=== PATIENT | male | born 1985 | race Caucasian/White ===

== ENCOUNTER 2017-01-21 15:58 | Observation (INO) | payer BC ==
[~2017-01-21] VITALS: Ht 182.9 cm; Wt 210.4 kg
[~2017-01-21 15:58] MED LIST: ALPR2TAB3 PO; DILA4TAB2 PO; NADO20TA PO
[2017-01-21 16:03] VITALS: BP 156/100; PULSE 84; RESP 20; TEMP 98.3; O2SAT 97
[2017-01-21] MEDS ORDERED: SODIUM CHLORIDE 0.9% FLUSH 10 ML FLUSH IVF PRN (16:15)
[2017-01-21] MEDS ORDERED: NITROGLYCERIN 0.4 MG SL 25 TABS/BTL SL ONE (16:15)
[2017-01-21] MEDS ORDERED: ASPIRIN 81 MG CHEW TAB PO ONE (16:15)
--- NOTE | 2017-01-21 16:15 | PD ---
HPI Chief Complaint: Chest Pain Time Seen by Provider: 16:08 Travel History International Travel<30 days: No Contact w/Intl Traveler<30days: No Traveled to known affect area: No History of Present Illness HPI Patient is a 31-year-old morbidly obese male smoker presents emergency Department chest tightness and left side of his chest going down his left shoulder. Patient states it started approximately 30 minutes prior to arrival. He states "I think I was having an heart attack". Patient states his father had a heart attack in his 50s. States no history of high blood pressure high cholesterol that he knows about. Denies any cocaine use denies any other controlled substance use. Endorses some shortness of breath and some mild nausea. PFSH Past Medical History Hx Anticoagulant Therapy: No Arthritis: Yes (Rt ankle, rt hand) Asthma: No Autoimmune Disease: No Anxiety: Yes Depression: No Heart Rhythm Problems: No Cancer: No Cardiovascular Problems: Yes High Cholesterol: No Chemotherapy: No Chest Pain: No Congestive Heart Failure: No COPD: No Cerebrovascular Accident: No Diabetes: No Diminished Hearing: No Endocrine: No Gastrointestinal Disorders: Yes Genitourinary: No Headaches: Yes Hiatal Hernia: Yes Heparin Induced Thrombocytopen: No Hypertension: No Immune Disorder: No Implanted Vascular Access Dvce: Yes Kidney Stones: No Musculoskeletal: Yes (LUM DICKEY) Neurologic: Yes (ARNOLD CHIARI MALFORMATION TYPE 2) Psychiatric: No Reproductive: No Respiratory: No Immunizations Current: No Migraines: No Pneumonia: Yes Radiation Therapy: No Renal Failure: No Seizures: No Sickle Cell Disease: No Sleep Apnea: Yes Ulcer: No Past Surgical History Abdominal Surgery: Yes (GASTRIC SLEEVE) AICD: No Appendectomy: Yes Arteriovenous Shunt: Yes (HX SHUNT, TAKEN OUT THOUGH) Cardiac Surgery: No Cholecystectomy: Yes Ear Surgery: No Endocrine Surgery: No Eye Surgery: No Genitourinary Surgery: Yes (GASTRIC SLEEVE 04/2012) Hysterectomy: No Insulin Pump: No Joint Replacement: No Neurologic Surgery: Yes (ARNOLD-CHIARI MALFORMATION ) Oral Surgery: Yes (TONSILLECTOMY/ADNOIDECTOMY) Pacemaker: No Thoracic Surgery: No Tonsillectomy: Yes Other Surgery: Yes (HERNIA, LAMINECTOMY CRANIOTOMY) Social History Alcohol Use: Yes (SOC) Tobacco Use: No Substance Use: No Allergies-Medications (Allergen,Severity, Reaction): Coded Allergies: Codeine (Verified Allergy, Intermediate, Nausea/Vomiting, 01/21/17) Morphine (Verified Allergy, Unknown, ABD PAIN AND NAUSEA, 01/21/17) Reported Meds & Prescriptions Reported Meds & Active Scripts Active Dilaudid (Hydromorphone HCl) 4 Mg Tab 4 Mg PO Q6H PRN Reported Metoprolol Tartrate 25 Mg Tab 25 Mg PO BID Alprazolam 2 Mg Tab 2 Mg PO BID PRN Nadolol 20 Mg Tab 20 Mg PO BID Review of Systems Except as stated in HPI: all other systems reviewed are Neg Physical Exam Narrative GENERAL: Well-developed well-nourished, morbidly obese, appears quite uncomfortable. SKIN: Focused skin assessment warm/dry. HEAD: Atraumatic. Normocephalic. EYES: Pupils equal and round. No scleral icterus. No injection or drainage. ENT: No nasal bleeding or discharge. Mucous membranes pink and moist. NECK: Trachea midline. No JVD. CARDIOVASCULAR: Regular rate and rhythm. No murmur appreciated. 2+ bilateral equal pulses in all 4 extremities. No edema. RESPIRATORY: No accessory muscle use. Clear to auscultation. Breath sounds equal bilaterally. GASTROINTESTINAL: Abdomen soft, non-tender, nondistended. Hepatic and splenic margins not palpable. MUSCULOSKELETAL: No obvious deformities. No clubbing. No cyanosis. No edema. NEUROLOGICAL: Awake and alert. No obvious cranial nerve deficits. Motor grossly within normal limits. Normal speech. PSYCHIATRIC: Appropriate mood and affect; insight and judgment normal. Data Data Last Documented VS Vital Signs Date Time Temp Pulse Resp B/P Pulse Ox O2 Delivery O2 Flow Rate FiO2 01/21/17 16:27 99 Room Air 01/21/17 16:03 98.3 84 20 156/100 Orders Electrocardiogram (01/21/17 16:13) Ckmb (Isoenzyme) Profile (01/21/17 16:13) Complete Blood Count With Diff (01/21/17 16:13) Comprehensive Metabolic Panel (01/21/17 16:13) Magnesium (Mg) (01/21/17 16:13) Prothrombin Time / Inr (Pt) (01/21/17 16:13) Act Partial Throm Time (Ptt) (01/21/17 16:13) Troponin I (01/21/17 16:13) Chest, Single Ap (01/21/17 16:13) Ecg Monitoring (01/21/17 16:13) Iv Access Insert/Monitor (01/21/17 16:13) Oximetry (01/21/17 16:13) Oxygen Administration (01/21/17 16:13) Aspirin Chew (Aspirin Chew) (01/21/17 16:15) Sodium Chloride 0.9% Flush (Ns Flush) (01/21/17 16:15) Nitroglycerin Sl (Nitrostat Sl) (01/21/17 16:15) Activity Bed Rest With Brp (01/21/17 18:13) Vital Signs (Adult) Q4H (01/21/17 18:13) Cardiac Rhythm .As Directed (01/21/17 18:13) Notify Dr: Other .PRN (01/21/17 18:13) Notify Parameters (01/21/17 18:13) Resp Oxygen Nasal Cannula (01/21/17 ) Ckmb (Isoenzyme) Profile (01/21/17 18:13) Ckmb (Isoenzyme) Profile (01/21/17 21:13) Troponin I (01/21/17 18:13) Troponin I (01/21/17 21:13) Electrocardiogram (01/21/17 18:13) Electrocardiogram (01/21/17 21:13) ^ Obtain (01/21/17 18:13) Sodium Chloride 0.9% Flush (Ns Flush) (01/21/17 18:15) Sodium Chloride 0.9% Flush (Ns Flush) (01/21/17 21:00) Fractionation Supervisor / Telemetry JENNIFER.Q8H (01/21/17 18:13) Drug Screen, Random Urine (01/21/17 18:13) Diet 1999 Ada Cons Carb (01/21/17 Dinner) Npo After Midnight W/ Po Meds (01/21/17 Dinner) Admit Order (Ed Use Only) (01/21/17 ) Labs Laboratory Tests Test 01/21/17 16:20 White Blood Count 12.8 TH/MM3 Red Blood Count 5.22 MIL/MM3 Hemoglobin 16.4 GM/DL Hematocrit 47.1 % Mean Corpuscular Volume 90.3 FL Mean Corpuscular Hemoglobin 31.4 PG Mean Corpuscular Hemoglobin 34.8 % Concent Red Cell Distribution Width 14.1 % Platelet Count 216 TH/MM3 Mean Platelet Volume 9.5 FL Neutrophils (%) (Auto) 66.1 % Lymphocytes (%) (Auto) 24.5 % Monocytes (%) (Auto) 7.5 % Eosinophils (%) (Auto) 1.3 % Basophils (%) (Auto) 0.6 % Neutrophils # (Auto) 8.5 TH/MM3 Lymphocytes # (Auto) 3.1 TH/MM3 Monocytes # (Auto) 1.0 TH/MM3 Eosinophils # (Auto) 0.2 TH/MM3 Basophils # (Auto) 0.1 TH/MM3 CBC Comment DIFF FINAL Differential Comment Prothrombin Time 11.2 SEC Prothromb Time International 1.0 RATIO Ratio Activated Partial 29.4 SEC Thromboplast Time Sodium Level 139 MEQ/L Potassium Level 4.0 MEQ/L Chloride Level 106 MEQ/L Carbon Dioxide Level 22.7 MEQ/L Anion Gap 10 MEQ/L Blood Urea Nitrogen 19 MG/DL Creatinine 0.86 MG/DL Estimat Glomerular Filtration 104 ML/MIN Rate Random Glucose 106 MG/DL Calcium Level 9.1 MG/DL Magnesium Level 1.6 MG/DL Total Bilirubin 0.4 MG/DL Aspartate Amino Transf 27 U/L (AST/SGOT) Alanine Aminotransferase 64 U/L (ALT/SGPT) Alkaline Phosphatase 64 U/L Total Creatine Kinase 69 U/L Troponin I LESS THAN 0.02 NG/ML Total Protein 7.3 GM/DL Albumin 3.6 GM/DL [facility] Medical Decision Making Medical Screen Exam Complete: Yes Emergency Medical Condition: Yes Medical Record Reviewed: Yes Interpretation(s) EKG shows normal sinus rhythm normal axis normal R-wave progression, intervals within normal limits. No concerning ST segment changes. This normal EKG. Differential Diagnosis ACS, AMI, pneumonia, GERD, costochondritis. Narrative Course Patient roomed in emergency department, he has fairly typical description of his chest pain, certainly does have risk factors including morbid obese, smoking , weak family history. Initial workup including troponin EKG negative. Patient feeling better with just rest. Discussed with the patient could consider following up with his knitter hand Dr. Barrera whom he follows with for palpitations versus observation. Patient prefers observation at this time. Given his typical description and his morbid obesity thank this is reasonable. Patient will be obs to chest pain center holding orders were placed. Diagnosis Primary Impression: Chest pain Admitting Information Admitting Physician Requests: Observation Condition: Stable Haris Tapai MD Jan 21, 2017 16:14
[2017-01-21 16:27] VITALS: O2SAT 99
[2017-01-21 16:32] LABS: AUTOMATED NEUTROPHIL # 8.5 TH/MM3 (1.8-7.7); BASOPHIL # 0.1 TH/MM3 (0-0.2); BASOPHIL % 0.6 % (0.0-2.0); EOSINOPHIL # 0.2 TH/MM3 (0-0.4); EOSINOPHIL % 1.3 % (0.0-4.0); HEMATOCRIT 47.1 % (39.0-51.0); HEMO FLAGS DIFF FINAL; LYMPH % 24.5 % (9.0-44.0); LYMPHOCYTE # 3.1 TH/MM3 (1.0-4.8); MEAN CELL VOLUME 90.3 FL (80.0-100.0); MEAN CORPUSCULAR HEMOGLOBIN 31.4 PG (27.0-34.0); MEAN CORPUSCULAR HGB CONC 34.8 % (32.0-36.0); MONO % 7.5 % (0.0-8.0); NEUT % 66.1 % (16.0-70.0); PLATELET COUNT 216 TH/MM3 (150-450); RED BLOOD COUNT 5.22 MIL/MM3 (4.50-5.90); RED CELL DISTRIBUTION WIDTH 14.1 % (11.6-17.2); WHITE BLOOD COUNT 12.8 TH/MM3 (4.0-11.0)
--- NOTE | 2017-01-21 16:41 | RADRPT ---
EXAM DATE/TIME: 01/21/2017 16:31 [facility] COMPARISON: CHEST SINGLE AP, May 14, 2016, 1:48. INDICATIONS : Chest pain, palpitations MEDICAL HISTORY : Hernia, hiatal. Arnold Chiari malformation type 2. Gastric sleeve SURGICAL HISTORY : None. ENCOUNTER: Initial ACUITY: PAIN SCORE: 5/10 LOCATION: Bilateral chest FINDINGS: A single view of the chest demonstrates the lungs to be symmetrically aerated without evidence of mas s, infiltrate or effusion. The cardiomediastinal contours are unremarkable. Osseous structures are intact. CONCLUSION: No acute disease. Milo Ervin MD on January 21, 2017 at 16:40 Board Certified Radiologist. This report was verified electronically.
[2017-01-21 16:43] LABS: APTT (PATIENT) 29.4 SEC (24.3-30.1); PROTHROMBIN TIME - PATIENT 11.2 SEC (9.8-11.6)
[2017-01-21 17:03] LABS: ANION GAP 10 MEQ/L (5-15); AST (GOT) 27 U/L (15-37); BICARBONATE 22.7 MEQ/L (21.0-32.0); BLOOD UREA NITROGEN 19 MG/DL (7-18); CHLORIDE 106 MEQ/L (98-107); GLOMERULAR FILTRATION RATE 104 ML/MIN (>89); MAGNESIUM 1.6 MG/DL (1.5-2.5); SODIUM (NA) 139 MEQ/L (136-145)
[2017-01-21 17:08] LABS: ALKALINE PHOSPHATASE 64 U/L (45-117); ALT (GPT) 64 U/L (12-78); TOTAL BILIRUBIN ADULT 0.4 MG/DL (0.2-1.0)
[2017-01-21 17:18] LABS: CREATINE KINASE 69 U/L (39-308)
[2017-01-21] MEDS ORDERED: METO25TA3 PO (17:35)
[2017-01-21] MEDS ORDERED: SODIUM CHLORIDE 0.9% FLUSH 10 ML FLUSH IV FLUSH PRN (18:15)
[2017-01-21 19:30] VITALS: O2SAT 97
[2017-01-21 19:34] VITALS: BP 115/74; PULSE 73; RESP 18; O2SAT 100
[2017-01-21 20:23] VITALS: BP 132/60; PULSE 71; RESP 18; TEMP 98.1; O2SAT 94
[2017-01-21 20:51] LABS: CREATINE KINASE 76 U/L (39-308)
[2017-01-21] MEDS: SODIUM CHLORIDE 0.9% FLUSH 10 ML FLUSH IV FLUSH SCH (21:00)
[2017-01-21] MEDS ORDERED: ACETAMINOPHEN/HYDROcodone 325 MG/7.5 MG TAB PO PRN (22:00)
[2017-01-21] MEDS ORDERED: ALPRAZolam 1 MG TAB PO PRN (22:00)
[2017-01-21] MEDS ORDERED: ACETAMINOPHEN 500 MG CPLT PO PRN (22:00)
[2017-01-21] MEDS: METOPROLOL TARTRATE 25 MG TAB PO SCH (22:28)
[2017-01-21 23:02] LABS: CREATINE KINASE 71 U/L (39-308)
[2017-01-21 23:08] VITALS: PULSE 76
[2017-01-21 23:48] LABS: AMPHETAMINE, URINE NEG (NEG); BARBITURATES, URINE NEG (NEG); COCAINE, URINE NEG (NEG)
[2017-01-22] VITALS (8 sets, daily range): BP systolic 121–142; BP diastolic 59–66; PULSE 58–89; RESP 16–18; TEMP 98–98.6; O2SAT 91–99
[2017-01-22] MEDS: SODIUM CHLORIDE 0.9% FLUSH 10 ML FLUSH IV FLUSH SCH (08:05)
[2017-01-22] MEDS: METOPROLOL TARTRATE 25 MG TAB PO SCH (09:00)
--- NOTE | 2017-01-22 11:28 | HHI.HP ---
HPI Primary Care Physician Non-Staff Chief Complaint Chest pain History of Present Illness Mr. Shepherd is a 31-year-old male patient with a known history of tachycardia and obesity who presented to the ED yesterday afternoon with complaints of sudden chest pain while sitting watching TV. Patient states the chest pain was sharp in nature, radiated down the left arm, lasted for a few minutes. Complaint of associated palpitations, dizziness, dyspnea and nausea. Denies vomiting or diaphoresis. Patient states he has been seeing Dr. Horn for chronic tachycardia due to his weight and has been changed from Nadolol to Metoprolol 25 mg PO BID, which patient has not started taking Patient also has a history of a malformation. Still ambulates, with complaints of residual weakness in the left upper extremity. Review of Systems General: Patient denies fevers, chills recent, and recent travel HEENT: Patient denies headache, sore throat, difficulty swallowing. Cardiovascular: Has the chest discomfort as mentioned above. Denies sensation of heart beating rapidly or irregularly. No syncope. Denies diaphoresis. Respiratory: He was short of breath. Denies inspirational chest discomfort. Denies coughing wheezing or hemoptysis. GI: Patient denies nausea, vomiting, diarrhea, abdominal pain, bloody stools. Musculoskeletal: Patient denies joint pain or edema. Denies calf pain or edema. Neurovascular: Patient denies numbness, tingling, weakness in extremities. Denies headache. Endocrine: Denies polyuria and polydipsia. Hematologic: Denies easy bruising. Skin: Denies rash or itching. Past Family Social History Allergies: Coded Allergies: Codeine (Verified Allergy, Intermediate, Nausea/Vomiting, 01/21/17) Morphine (Verified Allergy, Unknown, ABD PAIN AND NAUSEA, 01/21/17) Past Medical History Chronic tachycardia and anxiety. Obesity. Denies hypertension, hyperlipidemia , diabetes, and CAD. Past Surgical History Noncontributory. Reported Medications Reported Meds & Active Scripts Active Dilaudid (Hydromorphone HCl) 4 Mg Tab 4 Mg PO Q6H PRN Reported Metoprolol Tartrate 25 Mg Tab 25 Mg PO BID Alprazolam 2 Mg Tab 2 Mg PO BID PRN Nadolol 20 Mg Tab 20 Mg PO BID Active Ordered Medications Current Medications Medications (Trade) Dose Ordered Sig/Gabrielle Route Start Time Stop Time Status Last Admin (NS Flush) 2 ml UNSCH PRN IV FLUSH 01/21/17 18:15 (NS Flush) 2 ml BID IV FLUSH 01/21/17 21:00 01/22/17 08:05 (Xanax) 2 mg Q12H PRN PO 01/21/17 22:00 (Lopressor) 25 mg BID PO 01/21/17 21:00 01/21/17 22:28 (Vicco 7.5-325 Mg) 1 tab Q6H PRN PO 01/21/17 22:00 (Tylenol) 1,000 mg Q8H PRN PO 01/21/17 22:00 Family History Denies family history of CAD. Social History Patient does not smoke. Denies illicit drugs. Has occasional alcohol. Physical Exam Vital Signs Vital Signs Date Time Temp Pulse Resp B/P Pulse Ox O2 Delivery O2 Flow Rate FiO2 01/22/17 11:11 98.6 74 16 142/66 91 01/22/17 07:48 98.0 66 16 127/61 91 01/22/17 07:30 99 21 01/22/17 04:10 98.0 69 18 121/61 94 01/22/17 04:04 65 01/22/17 00:24 79 01/22/17 00:11 98.6 89 18 123/59 95 01/21/17 23:08 76 01/21/17 20:23 98.1 71 18 132/60 94 01/21/17 19:34 73 18 115/74 100 Room Air 01/21/17 19:30 97 01/21/17 16:27 99 Room Air 01/21/17 16:27 99 01/21/17 16:27 99 01/21/17 16:03 98.3 84 20 156/100 97 Physical Exam GENERAL: This is a well-nourished, well-developed patient, in no apparent distress. Patient speaks in clear complete sentences. Patient is pleasant. He is morbidly obese at 210 kg. HEENT: Head is atraumatic and normocephalic. Neck is supple without lymphadenopathy and trachea is midline. No JVD or carotid bruits. CARDIOVASCULAR: Regular rate and rhythm without murmurs, gallops, or rubs. RESPIRATORY: Clear to auscultation. Breath sounds equal bilaterally. No wheezes , rales, or rhonchi. Chest wall is nontender. No use of accessory muscles. GASTROINTESTINAL: Abdomen is nontender, nondistended. Abdomen soft. No obvious pulsatile mass or bruit. No CVA tenderness. Strong femoral pulses bilaterally. Normal bowel sounds in all quadrants. MUSCULOSKELETAL: Patient is moving upper and lower extremities freely. No calf tenderness or edema, no Homans sign. Strong pulses in upper and lower extremities. NEUROLOGICAL: Patient is alert and oriented. Cranial nerves 2-12 are grossly intact. No focal deficits and speech is clear. SKIN: No rash and turgor is normal. Laboratory Laboratory Tests Test 01/21/17 01/21/17 01/21/17 01/21/17 16:20 19:15 22:15 23:23 White Blood Count 12.8 Red Blood Count 5.22 Hemoglobin 16.4 Hematocrit 47.1 Mean Corpuscular Volume 90.3 Mean Corpuscular Hemoglobin 31.4 Mean Corpuscular Hemoglobin 34.8 Concent Red Cell Distribution Width 14.1 Platelet Count 216 Mean Platelet Volume 9.5 Neutrophils (%) (Auto) 66.1 Lymphocytes (%) (Auto) 24.5 Monocytes (%) (Auto) 7.5 Eosinophils (%) (Auto) 1.3 Basophils (%) (Auto) 0.6 Neutrophils # (Auto) 8.5 Lymphocytes # (Auto) 3.1 Monocytes # (Auto) 1.0 Eosinophils # (Auto) 0.2 Basophils # (Auto) 0.1 CBC Comment DIFF FINAL Differential Comment Prothrombin Time 11.2 Prothromb Time International 1.0 Ratio Activated Partial 29.4 Thromboplast Time Sodium Level 139 Potassium Level 4.0 Chloride Level 106 Carbon Dioxide Level 22.7 Anion Gap 10 Blood Urea Nitrogen 19 Creatinine 0.86 Estimat Glomerular Filtration 104 Rate Random Glucose 106 Calcium Level 9.1 Magnesium Level 1.6 Total Bilirubin 0.4 Aspartate Amino Transf 27 (AST/SGOT) Alanine Aminotransferase 64 (ALT/SGPT) Alkaline Phosphatase 64 Total Creatine Kinase 69 76 71 Troponin I LESS THAN 0.02 LESS THAN 0.02 LESS THAN 0.02 Total Protein 7.3 Albumin 3.6 Urine Opiates Screen NEG Urine Barbiturates Screen NEG Urine Amphetamines Screen NEG Urine Benzodiazepines Screen POS Urine Cocaine Screen NEG Urine Cannabinoids Screen NEG Result Diagram: 01/21/17 1620 01/21/17 1620 Imaging Last 48 hours Impressions Chest X-Ray 01/21/17 1613 Signed Impressions: Service Date/Time: Saturday, January 21, 2017 16:31 - CONCLUSION: No acute disease. Milo Ervin MD Course EKGs have sinus rhythm without significant ST segment depressions or elevations. Assessment and Plan Assessment and Plan * Atypical chest pain: Patient has had serial cardiac enzymes and EKGs for ruling out purposes. He was seen by Dr. Riley of cardiology in the chest pain center and will be discharged home at this time. He should follow-up with his student driving instructor Dr. Frederick. * Obesity: Patient has been counseled on importance of diet, exercise, and weight loss. Patient is stable at this time. He is agreeable to this plan. [place] Jan 22, 2017 11:28
--- NOTE | 2017-01-22 12:33 | HHI.DCPOC ---
Discharge Care Plan Diagnosis: (1) Chest pain, atypical Goals to Promote Your Health * To prevent worsening of your condition and complications * To maintain your health at the optimal level Directions to Meet Your Goals Take your medications as prescribed Follow your dietary instruction Follow activity as directed Keep your appointments as scheduled Take your immunizations and boosters as scheduled If your symptoms worsen call your PCP, if no PCP go to Urgent Care Center or Emergency Room Smoking is Dangerous to Your Health. Avoid second hand smoke Call the 24-hour hour crisis hotline for domestic abuse at [place] Jan 22, 2017 12:33
--- NOTE | 2017-01-22 16:17 | EKG ---
Date Performed: 01/21/2017 Time Performed: 22:24:59 PTAGE: 31 years EKG: Sinus rhythm Normal ECG PREVIOUS TRACING : 01/21/2017 19.20 Since previous tracing, no significant change noted DOCTOR: Bhavik Riley Interpretating Date/Time 01/22/2017 16:16:57
--- NOTE | 2017-01-22 16:22 | EKG ---
Date Performed: 01/21/2017 Time Performed: 19:20:47 PTAGE: 31 years EKG: Sinus rhythm Normal ECG PREVIOUS TRACING : 01/21/2017 16.09 Since previous tracing, no significant change noted DOCTOR: Bhavik Riley Interpretating Date/Time 01/22/2017 16:19:50
--- NOTE | 2017-01-22 16:22 | EKG ---
Date Performed: 01/21/2017 Time Performed: 16:09:16 PTAGE: 31 years EKG: Sinus rhythm NORMAL ECG PREVIOUS TRACING : 06/01/2016 18.33 Since previous tracing, no significant change noted DOCTOR: Bhavik Riley Interpretating Date/Time 01/22/2017 16:20:30
== END 2017-01-22 14:14 | disposition home or self-care (01) ==
LOC: NEPC 15:58 → NEDA 18:17 → NEPGCP 20:22
DX: R07.89 Other chest pain (principal); G47.30 Sleep apnea, unspecified; R06.02 Shortness of breath; R11.0 Nausea; E66.01 Morbid (severe) obesity due to excess calories; Q07.00 Arnold-Chiari syndrome without spina bifida or hydrocephalus; M19.071 Primary osteoarthritis, right ankle and foot; M19.041 Primary osteoarthritis, right hand; Z68.44 Body mass index [BMI] 60.0-69.9, adult; Z82.49 Family history of ischemic heart disease and other diseases of the circulatory system; Z71.3 Dietary counseling and surveillance
CPT/HCPCS: 71010; 80053; 80307; 82550; 83735; 84484; 85025; 85610; 85730; 93005; 99285; G0378

== ENCOUNTER 2017-10-05 00:59 | Emergency (ER) | payer BC ==
[~2017-10-05] VITALS: Ht 195.6 cm; Wt 227.4 kg
[~2017-10-05 00:59] MED LIST changes: -DILA4TAB2 PO; +METO25TA3 PO; -NADO20TA PO
[2017-10-05 01:05] VITALS: BP 113/44; PULSE 67; RESP 16; TEMP 98.3; O2SAT 99
--- NOTE | 2017-10-05 01:16 | PD ---
HPI Chief Complaint: OD/ Ingestion Time Seen by Provider: 01:04 Travel History International Travel<30 days: No Contact w/Intl Traveler<30days: No Traveled to known affect area: No History of Present Illness HPI The patient is a 31-year-old male with a history of alcohol and drug abuse who states he woke up and there was an empty bottle of vodka in his bed and a Xanax bottle which was empty. The 2 mg Xanax he states had about 10-15 tablets and when he went to sleep. He states he originally called the ambulance because he stubbed his right great toe day before yesterday and wanted it checked out. Later the patient was cursing myself and the staff and stated he wanted to leave. He cannot walk very well, apparently because of intoxication. PFSH Past Medical History Hx Anticoagulant Therapy: No Arthritis: Yes (Rt ankle, rt hand) Asthma: No Autoimmune Disease: No Anxiety: Yes Depression: No Heart Rhythm Problems: Yes Cancer: No Cardiac Catheterization: No Cardiovascular Problems: Yes High Cholesterol: No Chemotherapy: No Chest Pain: No Congestive Heart Failure: No COPD: No Cerebrovascular Accident: No Diabetes: No Diminished Hearing: No Endocrine: No Gastrointestinal Disorders: Yes Genitourinary: No Headaches: Yes Hiatal Hernia: Yes Heparin Induced Thrombocytopen: No Hypertension: No Immune Disorder: No Implanted Vascular Access Dvce: Yes Kidney Stones: No Musculoskeletal: Yes (LUM DICKEY) Neurologic: Yes (ARNOLD CHIARI MALFORMATION TYPE 2) Psychiatric: No Reproductive: No Respiratory: No Immunizations Current: No Migraines: No Pneumonia: Yes Radiation Therapy: No Renal Failure: No Seizures: No Sickle Cell Disease: No Sleep Apnea: Yes Ulcer: No Past Surgical History Abdominal Surgery: Yes (GASTRIC SLEEVE) AICD: No Appendectomy: Yes Arteriovenous Shunt: Yes (HX SHUNT, TAKEN OUT THOUGH) Cardiac Surgery: No Cholecystectomy: Yes Coronary Artery Bypass Graft: No Ear Surgery: No Endocrine Surgery: No Eye Surgery: No Genitourinary Surgery: Yes (GASTRIC SLEEVE 04/2012) Hysterectomy: No Insulin Pump: No Joint Replacement: No Neurologic Surgery: Yes (ARNOLD-CHIARI MALFORMATION ) Oral Surgery: Yes (TONSILLECTOMY/ADNOIDECTOMY) Pacemaker: No Thoracic Surgery: No Tonsillectomy: Yes Other Surgery: Yes (HERNIA, LAMINECTOMY CRANIOTOMY) Social History Alcohol Use: No Tobacco Use: Yes Substance Use: No Allergies-Medications (Allergen,Severity, Reaction): Coded Allergies: codeine (Unverified Allergy, Intermediate, Nausea/Vomiting, 02/15/17) morphine (Unverified Allergy, Unknown, ABD PAIN AND NAUSEA, 02/15/17) Reported Meds & Prescriptions Reported Meds & Active Scripts Active Reported Metoprolol Tartrate 25 Mg Tab 25 Mg PO BID Alprazolam 2 Mg Tab 2 Mg PO BID PRN Review of Systems Except as stated in HPI: all other systems reviewed are Neg Physical Exam Narrative GENERAL: The patient is obese, cursing, appears to be alcohol intoxicated. SKIN: Focused skin assessment warm/dry. HEAD: Atraumatic. Normocephalic. EYES: Pupils equal and round. No scleral icterus. No injection or drainage. ENT: No nasal bleeding or discharge. Mucous membranes pink and moist. NECK: Trachea midline. No JVD. CARDIOVASCULAR: Regular rate and rhythm. No murmur appreciated. RESPIRATORY: No accessory muscle use. Clear to auscultation. Breath sounds equal bilaterally. GASTROINTESTINAL: Abdomen soft, non-tender, nondistended. Hepatic and splenic margins not palpable. MUSCULOSKELETAL: No obvious deformities. No clubbing. No cyanosis. No edema. NEUROLOGICAL: Awake and alert. No obvious cranial nerve deficits. Motor grossly within normal limits. Normal speech. PSYCHIATRIC: Appropriate mood and affect; insight and judgment normal. Data Data Last Documented VS Vital Signs Date Time Temp Pulse Resp B/P (MAP) Pulse Ox O2 Delivery O2 Flow Rate FiO2 10/05/17 01:05 98.3 67 16 113/44 (67) 99 Orders Orders Toe (Min 2vws) (10/05/17 01:03) [facility] Medical Decision Making Medical Screen Exam Complete: Yes Emergency Medical Condition: Yes Medical Record Reviewed: Yes Differential Diagnosis Alcohol intoxication, threatening behavior, fractured great toe, other drug intoxication Narrative Course The patient would not cooperate and would not even let us x-ray his great toe. He would not allow any blood drawing. He eventually signed out AGAINST MEDICAL ADVICE. I watched him walk and he walked normally without any limp and told that she will catch a cab home. Diagnosis Primary Impression: Pain of right great toe Additional Impression: Left against medical advice Additional Instructions: As we discussed, we will be glad to x-ray her toe and check your levels. You actually appear to be fairly alert and you passed are ambulatory test quite well. Disposition: 07 AGAINST MEDICAL ADVICE Condition: Stable Yamil Lockhart MD Oct 05, 2017 01:16
== END 2017-10-05 02:15 | disposition left against medical advice (07) ==
LOC: PHED 00:59
DX: M79.674 Pain in right toe(s) (principal); F10.129 Alcohol abuse with intoxication, unspecified; F19.10 Other psychoactive substance abuse, uncomplicated; F41.9 Anxiety disorder, unspecified; W22.8XXA Striking against or struck by other objects, initial encounter; Z88.5 Allergy status to narcotic agent; Z53.21 Procedure and treatment not carried out due to patient leaving prior to being seen by health care provider
CPT/HCPCS: 99281

== ENCOUNTER 2017-10-31 03:37 | Emergency (ER) | payer BC ==
[~2017-10-31] VITALS: Ht 190.5 cm; Wt 210.0 kg
[2017-10-31] MEDS ORDERED: NADO20TA PO (03:41)
[2017-10-31 03:42] VITALS: BP 114/52; PULSE 95; RESP 20; TEMP 98.1; O2SAT 96
[2017-10-31 03:46] VITALS: O2SAT 97
--- NOTE | 2017-10-31 03:54 | PD ---
HPI Chief Complaint: Fall Time Seen by Provider: 03:43 Travel History International Travel<30 days: No Contact w/Intl Traveler<30days: No Traveled to known affect area: No History of Present Illness HPI The patient is a 31 year old male who presents to the [facility] emergency department with a history of tripping and falling on the stairs prior to arrival. The patient was on a landing and lost his balance falling 4-5 steps. The patient reports that he had the left side of his forehead. He reports having right shoulder pain, neck pain, and upper back pain reportedly between his shoulder blades. He reports having tingling sensations in his feet, however he reports that this began after he was placed on the backboard. He believes that it was related to the position on the backboard. The patient is 462 pounds, and unfortunately ambulance services had no cervical collar that would fit the patient. The patient has a towel rolled up around his neck and tapped. The patient denies having any chest pain, chest pressure, or shortness of breath. He denies having any abdominal pain. On review of systems, he denies having any recent fevers or chills, cough or congestion, vomiting, diarrhea, urinary symptoms, or neurologic symptoms. The patient is unsure when his tetanus was last updated. [facility] Past Medical History Narrative Medical The patient's past medical history is significant for tachycardia, anxiety disorder, and morbid obesity Hx Anticoagulant Therapy: No Arthritis: Yes (Rt ankle, rt hand) Asthma: No Autoimmune Disease: No Anxiety: Yes Depression: No Heart Rhythm Problems: Yes Cancer: No Cardiac Catheterization: No Cardiovascular Problems: Yes High Cholesterol: No Chemotherapy: No Chest Pain: No Congestive Heart Failure: No COPD: No Cerebrovascular Accident: No Diabetes: No Diminished Hearing: No Endocrine: No Gastrointestinal Disorders: Yes Genitourinary: No Headaches: Yes Hiatal Hernia: Yes Heparin Induced Thrombocytopen: No Hypertension: Yes Immune Disorder: No Implanted Vascular Access Dvce: Yes Kidney Stones: No Musculoskeletal: Yes (LUM DICKEY) Neurologic: Yes (ARNOLD CHIARI MALFORMATION TYPE 2) Psychiatric: No Reproductive: No Respiratory: No Immunizations Current: No Migraines: No Pneumonia: Yes Radiation Therapy: No Renal Failure: No Seizures: No Sickle Cell Disease: No Sleep Apnea: Yes Ulcer: No Tetanus Vaccination: Unknown Influenza Vaccination: No Past Surgical History Narrative Surgical The patient's past surgical history is significant for cervical spine surgery, cholecystectomy, appendectomy, hernia repair. Abdominal Surgery: Yes (GASTRIC SLEEVE) AICD: No Appendectomy: Yes Arteriovenous Shunt: Yes (HX SHUNT, TAKEN OUT THOUGH) Cardiac Surgery: No Cholecystectomy: Yes Coronary Artery Bypass Graft: No Ear Surgery: No Endocrine Surgery: No Eye Surgery: No Genitourinary Surgery: Yes (GASTRIC SLEEVE 04/2012) Hysterectomy: No Insulin Pump: No Joint Replacement: No Neurologic Surgery: Yes (ARNOLD-CHIARI MALFORMATION ) Oral Surgery: Yes (TONSILLECTOMY/ADNOIDECTOMY) Pacemaker: No Thoracic Surgery: No Tonsillectomy: Yes Other Surgery: Yes (HERNIA, LAMINECTOMY CRANIOTOMY) Family History Family Myocardial Infarction: Yes Social History Alcohol Use: Yes (Occasionally) Tobacco Use: Yes (1 pack per day) Substance Use: No Allergies-Medications (Allergen,Severity, Reaction): Coded Allergies: codeine (Unverified Allergy, Intermediate, Nausea/Vomiting, 10/31/17) morphine (Unverified Allergy, Unknown, ABD PAIN AND NAUSEA, 10/31/17) Reported Meds & Prescriptions Reported Meds & Active Scripts Active Hydrocodone-Acetaminophen 5-325 mg Tab 1 Tab PO Q6H PRN Reported Nadolol 20 Mg Tab 20 Mg PO BID Alprazolam 2 Mg Tab 2 Mg PO BID PRN Review of Systems Except as stated in HPI: all other systems reviewed are Neg General / Constitutional: No: Fever Eyes: No: Visual changes HENT: Positive: Headaches, Neck Pain, No: Rhinorrhea, Congestion, Neck Stiffness Cardiovascular: No: Chest Pain or Discomfort Respiratory: No: Cough, Shortness of Breath Gastrointestinal: No: Nausea, Vomiting, Diarrhea, Abdominal Pain Genitourinary: No: Dysuria Musculoskeletal: Positive: Myalgias, Arthralgias, Limited ROM, Pain Skin: No Rash Neurologic: Positive: Headache, No: Weakness, Focal Abnormalities, Change in Mentation, Slurred Speech, Sensory Disturbance Psychiatric: No: Depression Endocrine: No: Polydipsia Hematologic/Lymphatic: No: Easy Bruising Physical Exam Narrative General: The patient is a well-developed well-nourished male in no acute distress. The patient is brought in on a back board with a rolled towel taped around his neck for cervical spine stabilization as a cervical collar was not able to be fitted for the patient. Head and Neck exam: Head is normocephalic atraumatic. No facial bone tenderness or increased facial bone mobility noted on palpation. Eyes: EOMI, pupils are equal round and reactive to light. Nose: Midline septum with pink mucous membranes Mouth: Dentition unremarkable. Moist mucus membranes. Posterior oropharynx is not erythematous. No tonsillar hypertrophy. Uvula midline. Airway patent. Neck: The patient is immobilized. No tracheal deviation. The trachea appears midline. Cardiovascular: Regular rate and rhythm without murmurs, gallops, or rubs. Lungs: Clear to auscultation bilaterally. No wheezes, rhonchi, or rales. No chest wall tenderness to palpation. No erythema or ecchymosis noted. No crepitus , step off, or flail segment noted. Abdomen: Soft, without tenderness to palpation in all 4 quadrants of the abdomen. No guarding, rebound, or rigidity. No erythema or ecchymosis noted. Extremities: No instability or pain noted on pelvic rock. No clubbing, cyanosis , or edema. 2+ pulses in all 4 extremities. No extremity tenderness or deformity noted on palpation or passive/ active range of motion, except in the area of interest, the right shoulder. The patient reports having proximal right shoulder pain. The patient has decreased range of motion with pain at any attempts at abduction, internal or external rotation of the shoulder, and flexion of the shoulder. The patient has full range of motion of the wrist, hand. The patient has intact sensation over all digits. The patient has less than 3 second capillary refill. Back: The patient was log rolled off of the back board. The patient has reported tenderness on palpation along the spinous processes of the upper thoracic spine. No stepoff or crepitus noted. No costovertebral angle tenderness to palpation. No erythema or ecchymosis. Neurologic Exam: Cranial nerves 2-12 were intact on exam. Strength is 5/5 in all 4 extremities. No sensory deficits noted. Skin Exam: No rash noted. Intact skin that is warm and dry. Data Data Last Documented VS Vital Signs Date Time Temp Pulse Resp B/P (MAP) Pulse Ox O2 Delivery O2 Flow Rate FiO2 10/31/17 07:44 10/31/17 07:13 77 17 97 Room Air 10/31/17 03:[address] Brain W/O Iv Contrast(Rout) (10/31/17 03:43) Ct Thorax/ Chest W Iv Contrast (10/31/17 03:43) Ct Cerv Spine W/O Contrast (10/31/17 03:43) Ct Thor Spine W/O Contrast (10/31/17 03:43) Complete Blood Count With Diff (10/31/17 03:43) Comprehensive Metabolic Panel (10/31/17 03:43) Prothrombin Time / Inr (Pt) (10/31/17 03:43) Act Partial Throm Time (Ptt) (10/31/17 03:43) Chest, Single Ap (10/31/17 03:43) Iv Access Insert/Monitor (10/31/17 03:43) Ecg Monitoring (10/31/17 03:43) Oximetry (10/31/17 03:43) Shoulder, Complete (>2vws) (10/31/17 ) Ketorolac Inj (Toradol Inj) (10/31/17 05:00) Vybk-Bgl-Oxwoyp (Booster) Inj (Boostrix (10/31/17 05:00) Cefazolin 2 Gm Premix (Ancef 2 Gm Premix (10/31/17 05:00) Sodium Chlorid 0.9% 500 Ml Inj (Ns 500 M (10/31/17 05:00) Iohexol 350 Inj (Omnipaque 350 Inj) (10/31/17 06:05) Ed Discharge Order (10/31/17 07:16) Acetamin-Hydrocod 325-5 Mg ([place] 5-325 (10/31/17 07:30) Labs Laboratory Tests Test 10/31/17 03:48 White Blood Count 12.4 TH/MM3 Red Blood Count 5.31 MIL/MM3 Hemoglobin 16.2 GM/DL Hematocrit 47.6 % Mean Corpuscular Volume 89.8 FL Mean Corpuscular Hemoglobin 30.4 PG Mean Corpuscular Hemoglobin Concent 33.9 % Red Cell Distribution Width 14.3 % Platelet Count 268 TH/MM3 Mean Platelet Volume 8.9 FL Neutrophils (%) (Auto) 54.8 % Lymphocytes (%) (Auto) 34.8 % Monocytes (%) (Auto) 7.9 % Eosinophils (%) (Auto) 2.0 % Basophils (%) (Auto) 0.5 % Neutrophils # (Auto) 6.8 TH/MM3 Lymphocytes # (Auto) 4.3 TH/MM3 Monocytes # (Auto) 1.0 TH/MM3 Eosinophils # (Auto) 0.2 TH/MM3 Basophils # (Auto) 0.1 TH/MM3 CBC Comment DIFF FINAL Differential Comment Prothrombin Time 9.7 SEC Prothromb Time International Ratio 1.0 RATIO Activated Partial Thromboplast Time 26.3 SEC Blood Urea Nitrogen 19 MG/DL Creatinine 1.12 MG/DL Random Glucose 108 MG/DL Total Protein 7.2 GM/DL Albumin 3.7 GM/DL Calcium Level 8.4 MG/DL Alkaline Phosphatase 68 U/L Aspartate Amino Transf (AST/SGOT) 31 U/L Alanine Aminotransferase (ALT/SGPT) 61 U/L Total Bilirubin 0.3 MG/DL Sodium Level 142 MEQ/L Potassium Level 4.4 MEQ/L Chloride Level 107 MEQ/L Carbon Dioxide Level 23.2 MEQ/L Anion Gap 12 MEQ/L Estimat Glomerular Filtration Rate 77 ML/MIN [facility] Medical Decision Making Medical Screen Exam Complete: Yes Emergency Medical Condition: Yes Medical Record Reviewed: Yes Interpretation(s) Last Impressions Thoracic Spine CT 10/31/17342 Signed Impressions: Service Date/Time: Tuesday, October 31, 2017 05:12 - CONCLUSION: No fracture. Minimal marginal spurs. Spinal canal appears to be adequate throughout. Gordon Laura MD Head CT 10/31/17342 Signed Impressions: Service Date/Time: Tuesday, October 31, 2017 05:12 - CONCLUSION: 1. Moderate chronic sinusitis in the right maxillary antrum. 2. Otherwise negative. No acute intracranial process, trauma or fracture. Gordon Laura MD Chest X-Ray 10/31/17342 Signed Impressions: Service Date/Time: Tuesday, October 31, 2017 04:09 - CONCLUSION: No acute cardiopulmonary process. Gordon Laura MD Chest CT 10/31/17342 Signed Impressions: Service Date/Time: Tuesday, October 31, 2017 05:12 - CONCLUSION: 1. Possible residual thymic tissue in anterior mediastinum with some soft tissue density in this region. 2. Otherwise negative. Lungs are clear. Mediastinal vasculature is intact Gordon Laura MD Cervical Spine CT 10/31/17342 Signed Impressions: Service Date/Time: Tuesday, October 31, 2017 05:12 - CONCLUSION: 1. Post surgical changes with suboccipital central craniectomy, resection of the posterior arch of C1 and a revision/partial resection of the spinous processes of C2 and C3. 2. Degenerative disc disease most prominent at C5-6 with anteriorly directed spurs. No acute fracture or listhesis. 3. Spinal canal and neural foramina appear to be adequate throughout without cord or nerve root compromise. Gordon Laura MD Shoulder X-Ray 10/31/17 0000 Signed Impressions: Service Date/Time: Tuesday, October 31, 2017 04:11 - CONCLUSION: No fracture. Gordon Laura MD Differential Diagnosis Intracranial trauma, versus cervical spine trauma, versus intrathoracic trauma, versus T spine trauma, versus right shoulder fracture, versus right shoulder dislocation Narrative Course During the course of the patient's emergency department visit, the patient's history, examination, and differential diagnosis were reviewed with the patient. The patient was placed on a night monitor with oximetry and frequent blood pressure monitoring. The patient had IV access obtained and blood work sent for analysis. A CT scan of the head, C-spine, thorax, T-spine has been ordered The patient was initially provided an update to his tetanus, Ancef 2 g IV, normal saline at 500 mL bolus, Toradol for pain after CT scan of the brain showed no acute intracranial hemorrhage. The patient's laboratory studies were reviewed and remarkable for: 10/31/17 03:48 Total Protein 7.2, Albumin 3.7, Calcium Level 8.4 L, Alkaline Phosphatase 68, Aspartate Amino Transf (AST/SGOT) 31, Alanine Aminotransferase (ALT/SGPT) 61, Total Bilirubin 0.3. PT 9.7, PTT 26.3. Radiology studies were reviewed and remarkable for Last Impressions Thoracic Spine CT 10/31/173 Signed Impressions: Service Date/Time: Tuesday, October 31, 2017 05:12 - CONCLUSION: No fracture. Minimal marginal spurs. Spinal canal appears to be adequate throughout. Gordon Laura MD Head CT 10/31/17 0343 Signed Impressions: Service Date/Time: Tuesday, October 31, 2017 05:12 - CONCLUSION: 1. Moderate chronic sinusitis in the right maxillary antrum. 2. Otherwise negative. No acute intracranial process, trauma or fracture. Gordon Laura MD Chest X-Ray 10/31/17 0343 Signed Impressions: Service Date/Time: Tuesday, October 31, 2017 04:09 - CONCLUSION: No acute cardiopulmonary process. Gordon Laura MD Chest CT 10/31/17 0343 Signed Impressions: Service Date/Time: Tuesday, October 31, 2017 05:12 - CONCLUSION: 1. Possible residual thymic tissue in anterior mediastinum with some soft tissue density in this region. 2. Otherwise negative. Lungs are clear. Mediastinal vasculature is intact Gordon Laura MD Cervical Spine CT 10/31/17 0343 Signed Impressions: Service Date/Time: Tuesday, October 31, 2017 05:12 - CONCLUSION: 1. Post surgical changes with suboccipital central craniectomy, resection of the posterior arch of C1 and a revision/partial resection of the spinous processes of C2 and C3. 2. Degenerative disc disease most prominent at C5-6 with anteriorly directed spurs. No acute fracture or listhesis. 3. Spinal canal and neural foramina appear to be adequate throughout without cord or nerve root compromise. Gordon Laura MD Shoulder X-Ray 10/31/17 0000 Signed Impressions: Service Date/Time: Tuesday, October 31, 2017 04:11 - CONCLUSION: No fracture. Gordon Laura MD The patient is resting comfortably and feels better, is alert and in no distress. The patient's results and examination findings were discussed with the patient. The repeat examination is unremarkable and benign. The history, exam, diagnostic testing, and current condition do not suggest any significant pathology to warrant further testing, continued ED treatment, admission, or surgical evaluation at this point. The vital signs have been stable. The patient does not have uncontrollable pain, intractable vomiting, or other significant symptoms. The patient's condition is stable and appropriate for discharge. The patient will pursue further outpatient evaluation with a primary care physician or other designated or consulting physician as indicated in the discharge instructions. The patient expressed understanding and was agreeable with this plan. Diagnosis Primary Impression: Fall Qualified Codes: W19.XXXA - Unspecified fall, initial encounter Additional Impressions: Shoulder pain, acute Qualified Codes: M25.511 - Pain in right shoulder Neck pain Back pain Qualified Codes: M54.6 - Pain in thoracic spine Referrals: Primary Care Physician 2 days Patient Instructions: Acute Neck Pain (ED), Fall Prevention (ED), General Instructions, Head Injury (ED), Shoulder Pain (ED) Med/Other Pt SpecificInfo: Prescription(s) given Scripts Hydrocodone-Acetaminophen (Hydrocodone-Acetaminophen) 5-325 mg Tab 1 TAB PO Q6H Y for PAIN, #12 TAB 0 Refills Prov: Sary Krishnan MD 10/31/17 Disposition: 01 DISCHARGE HOME Condition: Stable Sary Krishnan MD October 31, 2017 03:54
[2017-10-31 03:59] LABS: AUTOMATED NEUTROPHIL # 6.8 TH/MM3 (1.8-7.7); BASOPHIL # 0.1 TH/MM3 (0-0.2); BASOPHIL % 0.5 % (0.0-2.0); EOSINOPHIL # 0.2 TH/MM3 (0-0.4); HEMATOCRIT 47.6 % (39.0-51.0); HEMOGLOBIN 16.2 GM/DL (13.0-17.0); LYMPH % 34.8 % (9.0-44.0); LYMPHOCYTE # 4.3 TH/MM3 (1.0-4.8); MEAN CELL VOLUME 89.8 FL (80.0-100.0); MEAN CORPUSCULAR HEMOGLOBIN 30.4 PG (27.0-34.0); MEAN CORPUSCULAR HGB CONC 33.9 % (32.0-36.0); MEAN PLATELET VOLUME 8.9 FL (7.0-11.0); MONO % 7.9 % (0.0-8.0); NEUT % 54.8 % (16.0-70.0); PLATELET COUNT 268 TH/MM3 (150-450); RED BLOOD COUNT 5.31 MIL/MM3 (4.50-5.90); RED CELL DISTRIBUTION WIDTH 14.3 % (11.6-17.2); WHITE BLOOD COUNT 12.4 TH/MM3 (4.0-11.0)
[2017-10-31 04:09] LABS: PROTHROMBIN TIME - PATIENT 9.7 SEC (9.8-11.6)
[2017-10-31 04:14] LABS: ALKALINE PHOSPHATASE 68 U/L (45-117); TOTAL BILIRUBIN ADULT 0.3 MG/DL (0.2-1.0); TOTAL PROTEIN 7.2 GM/DL (6.4-8.2)
[2017-10-31 04:35] LABS: ALBUMIN 3.7 GM/DL (3.4-5.0); ALT (GPT) 61 U/L (12-78); AST (GOT) 31 U/L (15-37); BICARBONATE 23.2 MEQ/L (21.0-32.0); BLOOD UREA NITROGEN 19 MG/DL (7-18); CALCIUM 8.4 MG/DL (8.5-10.1); CHLORIDE 107 MEQ/L (98-107); CREATININE 1.12 MG/DL (0.60-1.30); GLOMERULAR FILTRATION RATE 77 ML/MIN (>89); GLUCOSE,RANDOM 108 MG/DL (74-106); SODIUM (NA) 142 MEQ/L (136-145)
--- NOTE | 2017-10-31 04:46 | RADRPT ---
EXAM DATE/TIME: 10/31/2017 04:09 [facility] COMPARISON: CHEST SINGLE AP, January 21, 2017, 16:31. INDICATIONS : Short of breath. MEDICAL HISTORY : None. SURGICAL HISTORY : None. ENCOUNTER: Initial ACUITY: 1 day PAIN SCORE: 0/10 LOCATION: Bilateral chest FINDINGS: A single view of the chest demonstrates the lungs to be symmetrically aerated without evidence of mas s, infiltrate or effusion. The cardiomediastinal contours are unremarkable. Osseous structures are intact. CONCLUSION: No acute cardiopulmonary process. Gordon Laura MD on October 31, 2017 at 4:44 Board Certified Radiologist. This report was verified electronically.
--- NOTE | 2017-10-31 04:50 | RADRPT ---
EXAM DATE/TIME: 10/31/2017 04:11 [facility] COMPARISON: No previous studies available for comparison. INDICATIONS : Pain in shoulder. MEDICAL HISTORY : None. SURGICAL HISTORY : None. ENCOUNTER: Initial ACUITY: 1 day PAIN SCORE: 2/10 LOCATION: Right shoulder FINDINGS: Multiple view examination of the right shoulder demonstrates no evidence of fracture or dislocation. The glenohumeral and acromioclavicular joints are maintained. There is normal range of motion betwe en internal and external rotation. Bony mineralization is normal. CONCLUSION: No fracture. Gordon Laura MD on October 31, 2017 at 4:48 Board Certified Radiologist. This report was verified electronically.
[2017-10-31] MEDS ORDERED: SODIUM CHLORID 0.9% 500 ML INJ 500 ML IV ONE (05:00)
[2017-10-31] MEDS ORDERED: ceFAZolin 2 GM PREMIX 50 ML IV ONE (05:00)
[2017-10-31] MEDS ORDERED: DIPHTH/TETANUS/ACEL PERTUSSIS (BOOSTER) 0.5 ML VIAL/PFS IM ONE (05:00)
[2017-10-31] MEDS ORDERED: KETOROLAC TROMETHAMINE 60 MG/2 ML (IM) VIAL IM ONE (05:00)
[2017-10-31 05:22] VITALS: BP_SYST 147; BP_SYST 154; BP_DIAS 69; BP_DIAS 78; PULSE 78; PULSE 97; RESP 18; O2SAT 98
[2017-10-31] MEDS ORDERED: IOHEXOL 350 MG/ML 10 ML VIAL (for RAD DIAG) IVCONTRAST ONE (06:05)
--- NOTE | 2017-10-31 06:17 | RADRPT ---
EXAM DATE/TIME: 10/31/2017 05:12 [facility] COMPARISON: CT BRAIN W/O CONTRAST, November 22, 2015, 4:02. INDICATIONS : Trauma; fall. RADIATION DOSE: 64.63 CTDIvol (mGy) MEDICAL HISTORY : Cardiovascular disease. Hypertension. SURGICAL HISTORY : Gastric bypass. Craniotomy.Appendectomy. ENCOUNTER: Initial ACUITY: 1 day PAIN SCALE: 8/10 LOCATION: cranial TECHNIQUE: Multiple contiguous axial images were obtained of the head. Using automated exposure control and adj ustment of the mA and/or kV according to patient size, radiation dose was kept as low as reasonably a chievable to obtain optimal diagnostic quality images. DICOM format image data is available electro nically for review and comparison. FINDINGS: CEREBRUM: The ventricles are normal for age. No evidence of midline shift, mass lesion, hemorrhage or acute in farction. No extra-axial fluid collections are seen. POSTERIOR FOSSA: The cerebellum and brainstem are intact. The 4th ventricle is midline. The cerebellopontine angle i s unremarkable. EXTRACRANIAL: The visualized portion of the orbits is intact. Small retention cyst in the right maxillary antra SKULL: The calvaria is intact. No evidence of skull fracture. CONCLUSION: 1. Moderate chronic sinusitis in the right maxillary antrum. 2. Otherwise negative. No acute intracranial process, trauma or fracture. Gordon Laura MD on October 31, 2017 at 6:14 Board Certified Radiologist. This report was verified electronically.
--- NOTE | 2017-10-31 06:23 | RADRPT ---
EXAM DATE/TIME: 10/31/2017 05:12 [facility] COMPARISON: No previous studies available for comparison. INDICATIONS : Trauma; fall. RADIATION DOSE: 32.57 CTDIvol (mGy) ; Patient body habitus MEDICAL HISTORY : Cardiovascular disease. Hypertension. SURGICAL HISTORY : Gastric bypass. Appendectomy.Craniotomy. ENCOUNTER: Initial ACUITY: 1 day PAIN SCALE: 7/10 LOCATION: Bilateral neck TECHNIQUE: Volumetric scanning of the cervical spine was performed. Multiplanar reconstructions in the sagittal, coronal and oblique axial planes were performed. Using automated exposure control and adjustment o f the mA and/or kV according to patient size, radiation dose was kept as low as reasonably achievable to obtain optimal diagnostic quality images. DICOM format image data is available electronically f or review and comparison. FINDINGS: Sagittal and coronal reconstructions show postsurgical changes with a suboccipital craniectomy, resec tion of the posterior arch of C1 and partial resection of the spinous processes of C2 and C3. Otherw ise, vertebral body heights are maintained without fracture or listhesis. Marginal spurring most prom inent at C5-6 rectum anteriorly. Spinal canal is widely patent. C2-C3: The bony spinal canal is normal in size. No evidence of disc bulge or herniation. The neural forami na are bilaterally patent. Partial resection of the spinous process of C2 and C3 C3-C4: The bony spinal canal is normal in size. No evidence of disc bulge or herniation. The neural forami na are bilaterally patent. C4-C5: The bony spinal canal is normal in size. No evidence of disc bulge or herniation. The neural forami na are bilaterally patent. C5-C6: Anteriorly directed vertebral ridging. Spinal canal and neural foramina are adequate C6-C7: The bony spinal canal is normal in size. No evidence of disc bulge or herniation. The neural forami na are bilaterally patent. C7-T1: The bony spinal canal is normal in size. No evidence of disc bulge or herniation. The neural forami na are bilaterally patent. CONCLUSION: 1. Post surgical changes with suboccipital central craniectomy, resection of the posterior arch of C1 and a revision/partial resection of the spinous processes of C2 and C3. 2. Degenerative disc disease most prominent at C5-6 with anteriorly directed spurs. No acute fracture or listhesis. 3. Spinal canal and neural foramina appear to be adequate throughout without cord or nerve root compr omise. Gordon Laura MD on October 31, 2017 at 6:19 Board Certified Radiologist. This report was verified electronically.
--- NOTE | 2017-10-31 06:25 | RADRPT ---
EXAM DATE/TIME: 10/31/2017 05:12 [facility] COMPARISON: No previous studies available for comparison. INDICATIONS : Trauma; fall. IV CONTRAST: 75 cc Omnipaque 350 (iohexol) IV ; Cumulative dose for multiple exams. RADIATION DOSE: 32.34 CTDIvol (mGy) ; Patient body habitus MEDICAL HISTORY : Cardiovascular disease. Hypertension. SURGICAL HISTORY : Craniotomy. Gastric bypass. Appendectomy. ENCOUNTER: Initial ACUITY: 1 day PAIN SCALE: 8/10 LOCATION: Bilateral chest TECHNIQUE: Volumetric scanning of the chest was performed. Using automated exposure control and adjustment of t he mA and/or kV according to patient size, radiation dose was kept as low as reasonably achievable to obtain optimal diagnostic quality images. DICOM format image data is available electronically for review and comparison. Follow-up recommendations for detected pulmonary nodules are based at a minimum on nodule size and pa tient risk factors according to Fleischner Society Guidelines. FINDINGS: LUNGS: There is no consolidation or pneumothorax. No concerning pulmonary nodule is visualized. PLEURA: There is no pleural thickening or pleural effusion. MEDIASTINUM: The heart and great vessels demonstrate no acute abnormality. There is no mediastinal or hilar lymph adenopathy. Hazy density in the anterior mediastinum may represent some residual thymic tissue. AXILLAE: Within normal limits. No lymphadenopathy. SKELETAL: Within normal limits for patient age. MISCELLANEOUS: The visualized upper abdominal organs demonstrate no acute abnormality. CONCLUSION: 1. Possible residual thymic tissue in anterior mediastinum with some soft tissue density in this charles on. 2. Otherwise negative. Lungs are clear. Mediastinal vasculature is intact Gordon Laura MD on October 31, 2017 at 6:22 Board Certified Radiologist. This report was verified electronically.
--- NOTE | 2017-10-31 06:58 | RADRPT ---
EXAM DATE/TIME: 10/31/2017 05:12 [place] COMPARISON: No previous studies available for comparison. INDICATIONS : Trauma; fall. RADIATION DOSE: ; Reconstructed from previous dataset, no dose MEDICAL HISTORY : Cardiovascular disease. Hypertension. SURGICAL HISTORY : Gastric bypass. Appendectomy.Craniotomy. ENCOUNTER: Initial ACUITY: 1 day PAIN SCALE: 8/10 LOCATION: Bilateral spine TECHNIQUE: Volumetric scanning of the thoracic spine was performed. Multiplanar reconstructions in the sagittal , coronal and oblique axial planes were performed. Using automated exposure control and adjustment o f the mA and/or kV according to patient size, radiation dose was kept as low as reasonably achievable to obtain optimal diagnostic quality images. DICOM format image data is available electronically f or review and comparison. FINDINGS: The vertebral bodies of the thoracic spine are in normal alignment without evidence of subluxation. Vertebral body height is maintained. No fractures are seen. Minimal multilevel marginal spurring jeanna racteristic of some degenerative disc disease in the mid and lower dorsal spine. T1-T2: Normal. T2-T3: The thecal sac has a normal diameter. No evidence of disc bulge or protrusion. T3-T4: The thecal sac has a normal diameter. No evidence of disc bulge or protrusion. T4-T5: The thecal sac has a normal diameter. No evidence of disc bulge or protrusion. T5-T6: The thecal sac has a normal diameter. No evidence of disc bulge or protrusion. T6-T7: The thecal sac has a normal diameter. No evidence of disc bulge or protrusion. T7-T8: The thecal sac has a normal diameter. No evidence of disc bulge or protrusion. T8-T9: The thecal sac has a normal diameter. No evidence of disc bulge or protrusion. T9-T10: The thecal sac has a normal diameter. No evidence of disc bulge or protrusion. T10-T11: The thecal sac has a normal diameter. No evidence of disc bulge or protrusion. T11-T12: The thecal sac has a normal diameter. No evidence of disc bulge or protrusion. T12-L1: The thecal sac has a normal diameter. No evidence of disc bulge or protrusion. CONCLUSION: No fracture. Minimal marginal spurs. Spinal canal appears to be adequate throughout. Gordon Laura MD on October 31, 2017 at 6:56 Board Certified Radiologist. This report was verified electronically.
[2017-10-31 07:13] VITALS: BP 149/65; PULSE 77; RESP 17; O2SAT 97
[2017-10-31] MEDS ORDERED: HYDR-3516 PO (07:23)
[2017-10-31] MEDS ORDERED: ACETAMINOPHEN/HYDROcodone 325 MG/5 MG TAB PO ONE (07:30)
== END 2017-10-31 07:49 | disposition home or self-care (01) ==
LOC: NEPE 03:37
DX: M25.511 Pain in right shoulder (principal); M54.6 Pain in thoracic spine; J32.0 Chronic maxillary sinusitis; I10 Essential (primary) hypertension; F17.200 Nicotine dependence, unspecified, uncomplicated; R06.02 Shortness of breath; Z23 Encounter for immunization
CPT/HCPCS: 70450; 71045; 71260; 72125; 72128; 73030; 80053; 85025; 85610; 85730; 90471; 90715; 96365; 96372; 99285; J0690; J1885; J7040; Q9967